=== PATIENT | female | born 1965 ===

== ENCOUNTER → 2016-03-27 | Outpatient (CLI) | payer BC ==
--- NOTE | 2016-03-27 08:16 | MM ---
Reason for exam: clinical finding. Last mammogram was performed 2 years and 6 months ago. History: Patient is postmenopausal. Physical Findings: Nurse did not find any significant physical abnormalities on exam. MG Diagnostic Mammo w CAD RONNY Bilateral CC and MLO view(s) were taken. Prior study comparison: September 16, 2013, bilateral MG screening mammo w CAD. May 29, 2012, bilateral digital screening mammo w/CAD. There are scattered fibroglandular densities. Finding: There are typically benign calcifications. There is no discrete abnormality including area of concern. These results were verbally communicated with the patient and result sheet given to the patient on 03/27/16. ASSESSMENT: Benign, BI-RAD 2 RECOMMENDATION: Routine screening mammogram of both breasts in 1 year. Manage patient on a clinical basis.
== END | disposition home or self-care (01) ==
LOC: RADMAMWWP 07:13
PROVIDERS: ATTEND Obstetrics & Gynecology
DX: N63 Unspecified lump in breast (principal)

== ENCOUNTER 2017-11-29 12:54 | Emergency (ER) | payer BC ==
[2017-11-29] MEDS ORDERED: KETOROLAC 30 MG/ML 1 ML VIAL IVP STA (13:14)
[2017-11-29] MEDS ORDERED: SODIUM CHLORIDE 0.9% 1,000 ML IV ONE (13:14)
--- NOTE | 2017-11-29 13:17 | ED ---
Abdominal Pain HPI - General Chief Complaint: Abdominal Pain Stated Complaint: Abd pain Time Seen by Provider: 11/29/17 13:05 Source: patient Mode of arrival: ambulatory Limitations: no limitations - History of Present Illness Initial Comments: Patient is a 51-year-old female who presents with a chief complaint of right lower quadrant abdominal pain. This is after one week. The patient was seen by her primary care Dr and sent to emergency department for evaluation of appendicitis. Patient states that she has not had fever or diarrhea. She states that she has been nauseated but has not vomited. She states that her appetite is normal. Patient does not have any history of kidney stones. The patient states that she is a history of diabetes. Patient states that pain is aggravated by certain movements. There are no alleviating factors. Timing is constant and worsening over the week. - Related Data Home Medications Medication Instructions Recorded Confirmed No Known Home Medications 11/29/17 11/29/17 Allergies Allergy/AdvReac Type Severity Reaction Status Date / Time No Known Allergies Allergy Verified 11/29/17 12:59 Review of Systems ROS Statement: Those systems with pertinent positive or pertinent negative responses have been documented in the HPI. ROS Other: All systems not noted in ROS Statement are negative. Gastrointestinal: Reports: abdominal pain, nausea Genitourinary: Reports: frequency Past Medical History Past Medical History: Diabetes Mellitus History of Any Multi-Drug Resistant Organisms: None Reported Past Surgical History: Section, Hysterectomy Past Psychological History: No Psychological Hx Reported Smoking Status: Never smoker Past Alcohol Use History: None Reported Past Drug Use History: None Reported General Exam Limitations: no limitations General appearance: alert, in no apparent distress Head exam: Present: atraumatic, normocephalic Eye exam: Present: normal appearance ENT exam: Present: normal exam, mucous membranes moist Neck exam: Present: normal inspection Respiratory exam: Present: normal lung sounds bilaterally. Absent: respiratory distress, wheezes Cardiovascular Exam: Present: regular rate, normal rhythm GI/Abdominal exam: Present: soft, tenderness (Patient is tenderness palpation in the right lower quadrant). Absent: distended Rectal exam: Present: deferred Extremities exam: Present: normal inspection Back exam: Present: normal inspection, CVA tenderness (R). Absent: CVA tenderness (L) Neurological exam: Present: alert, oriented X3 Psychiatric exam: Present: normal affect, normal mood Skin exam: Present: warm, dry, intact Course Vital Signs 11/29/17 12:59 Temperature 97.9 F Pulse Rate 69 Respiratory 18 Rate Blood Pressure 177/122 O2 Sat by Pulse 99 Oximetry Medical Decision Making - Medical Decision Making Patient is a 51-year-old who presents with chief complaint of right lower quadrant abdominal pain. On initial evaluation, vitals are stable, patient is in no acute distress. Considering kidney stone versus appendicitis. Patient to be evaluated with basic labs, urinalysis, and computed tomography scan of the abdomen and pelvis. 5:07 PM E evaluation of this patient is unremarkable, urinalysis does not show evidence of hematuria or infection. Computed tomography scan with contrast shows a normal appendix, and it normal evaluation of the kidneys. Of note, there were cysts on the right adnexa. Follow-up ultrasound shows similar complex adnexal cysts the biggest of which measuring 5 cm in diameter at its largest dimension. Patient states she has not had a period 12 years. I discussed the results with the patient instructed that she follow up with Dr. Cherry as soon as possible. Patient was instructed to return to the emergency department for reevaluation if pain worsens. She was instructed to take Motrin and Tylenol for pain control. Follow up with primary care in 1-2 days. - Lab Data Result diagrams: 11/29/17 13:24 11/29/17 13:24 Lab Results 11/29/17 11/29/17 11/29/17 Range/Units 13:24 13:24 13:24 WBC 5.9 (3.8-10.6) k/uL RBC 5.41 H (3.80-5.40) m/uL Hgb 14.6 (11.4-16.0) gm/dL Hct 46.0 (34.0-46.0) % MCV 84.9 (80.0-100.0) fL MCH 26.9 (25.0-35.0) pg MCHC 31.7 (31.0-37.0) g/dL RDW 13.6 (11.5-15.5) % Plt Count 224 (150-450) k/uL Neutrophils % 39 % Lymphocytes % 50 % Monocytes % 5 % Eosinophils % 3 % Basophils % 1 % Neutrophils # 2.3 (1.3-7.7) k/uL Lymphocytes # 2.9 (1.0-4.8) k/uL Monocytes # 0.3 (0-1.0) k/uL Eosinophils # 0.2 (0-0.7) k/uL Basophils # 0.1 (0-0.2) k/uL Sodium 141 (137-145) mmol/L Potassium 4.5 (3.5-5.1) mmol/L Chloride 108 H (98-107) mmol/L Carbon Dioxide 24 (22-30) mmol/L Anion Gap 9 mmol/L BUN 16 (7-17) mg/dL Creatinine 0.57 (0.52-1.04) mg/dL Est GFR (CKD-EPI)AfAm >90 (>60 ml/min/1.73 sqM) Est GFR (CKD-EPI)NonAf >90 (>60 ml/min/1.73 sqM) Glucose 134 H (74-99) mg/dL Calcium 9.8 (8.4-10.2) mg/dL Total Bilirubin 0.4 (0.2-1.3) mg/dL AST 19 (14-36) U/L ALT 29 (9-52) U/L Alkaline Phosphatase 80 (38-126) U/L Total Protein 7.4 (6.3-8.2) g/dL Albumin 4.2 (3.5-5.0) g/dL Urine Color Yellow Urine Appearance Cloudy H (Clear) Urine pH 7.0 (5.0-8.0) Ur Specific [place] 1.016 (1.001-1.035) Urine Protein Negative (Negative) Urine Glucose (UA) Negative (Negative) Urine Ketones Negative (Negative) Urine Blood Negative (Negative) Urine Nitrite Negative (Negative) Urine Bilirubin Negative (Negative) Urine Urobilinogen <2.0 (<2.0) mg/dL Ur Leukocyte Esterase Negative (Negative) Urine RBC 1 (0-5) /hpf Urine WBC 1 (0-5) /hpf Ur Squamous Epith Cells 4 (0-4) /hpf Urine Bacteria Rare H (None) /hpf Disposition Clinical Impression: Ovarian cyst Disposition: HOME SELF-CARE Condition: Good Is patient prescribed a controlled substance at d/c from ED?: No Referrals: Leslie Chaney MD [Primary Care Provider] - 1-2 days
[2017-11-29 13:44] LABS: Basophils # (A) 0.1 k/uL (0-0.2); Basophils % (A) 1 %; Eosinophils # (A) 0.2 k/uL (0-0.7); Eosinophils % (A) 3 %; HGB 14.6 gm/dL (11.4-16.0); Lymphocytes # (A) 2.9 k/uL (1.0-4.8); Lymphocytes % (A) 50 %; MCH 26.9 pg (25.0-35.0); MCHC 31.7 g/dL (31.0-37.0); MCV 84.9 fL (80.0-100.0); Mean Platelet Volume 8.7; Monocytes # (A) 0.3 k/uL (0-1.0); Monocytes % (A) 5 %; Neutrophils # (A) 2.3 k/uL (1.3-7.7); Neutrophils % (A) 39 %; Platelet Count 224 k/uL (150-450); RBC 5.41 m/uL (3.80-5.40); RDW 13.6 % (11.5-15.5); WBC 5.9 k/uL (3.8-10.6)
[2017-11-29 13:46] LABS: Appearance,Urine Cloudy (Clear); Bacteria,Urine Rare /hpf; Bilirubin,Urine Negative (Negative); Blood,Urine Negative (Negative); Color,Urine Yellow; Glucose,Urine (UA) Negative (Negative); Ketones,Urine Negative (Negative); Leukocyte Esterase,Urine Negative (Negative); Nitrite,Urine Negative (Negative); Protein,Urine Negative (Negative); RBC,Urine 1 /hpf (0-5); Specific Gravity,Urine 1.016 (1.001-1.035); Squamous Epithelial Cell,Urine 4 /hpf (0-4); Urobilinogen,Urine <2.0 mg/dL (<2.0)
[2017-11-29 13:53] LABS: ALT 29 U/L (9-52); AST 19 U/L (14-36); Albumin 4.2 g/dL (3.5-5.0); Alkaline Phosphatase 80 U/L (38-126); Anion Gap 9 mmol/L; Blood Urea Nitrogen 16 mg/dL (7-17); Calcium 9.8 mg/dL (8.4-10.2); Carbon Dioxide 24 mmol/L (22-30); Chloride 108 mmol/L (98-107); Glucose 134 mg/dL (74-99); Potassium 4.5 mmol/L (3.5-5.1); Sodium 141 mmol/L (137-145); Total Bilirubin 0.4 mg/dL (0.2-1.3); Total Protein 7.4 g/dL (6.3-8.2)
--- NOTE | 2017-11-29 15:03 | CT ---
EXAMINATION TYPE: CT abdomen pelvis w con DATE OF EXAM: 11/29/2017 COMPARISON: None INDICATION: RLQ pain DLP: 1161.7 mGycm, Automated exposure control for dose reduction was used. CONTRAST: 100 mL of Isovue 300. Study performed without Oral Contrast TECHNIQUE: Axial images were obtained from above the diaphragm to the pubic rami in the axial plane a t 5 mm thick sections. Reconstructed images are reviewed on the computer in the coronal plane. FINDINGS: Limited CT sections are obtained the lung bases. The lung bases are clear. CT ABDOMEN: Liver: Normal Spleen: Normal Pancreas: Normal Adrenal glands: The adrenal glands are normal. Gallbladder: Normal Kidneys: No masses are evident. No hydronephrosis is present. No cysts are present. Delayed images were obtained through the kidneys, which remain unremarkable. Aorta: Normal Inferior vena cava: Normal. CT PELVIS: Loops of bowel within the abdomen and pelvis are normal. Studies performed without oral contrast limiting the evaluation. Appendix: Normal as visualized. Urinary bladder: Partially decompressed with some limited evaluation. Genitourinary structures: There are several cystlike structures on the right ovary. The largest measu res 3.8 cm with additional 2.8 and 1.5 cm cysts. Additional evaluation with pelvic ultrasound is sanam mmended. Left adnexal region appears normal uterus is not identified. Osseous structures: No suspicious lytic or sclerotic lesions. IMPRESSIONS: 1. Several cystlike areas within the right adnexal region. These can be further evaluated with pelvi c ultrasound.
--- NOTE | 2017-11-29 16:46 | US ---
EXAMINATION TYPE: US transvaginal DATE OF EXAM: 11/29/2017 COMPARISON: CT CLINICAL HISTORY: Pain. RLQ pain TECHNIQUE: Transvaginal (TV). Date of LMP: hysterectomy 13 years ago EXAM MEASUREMENTS: Uterus: Surgically absent cm Endometrial Stripe: Surgically absent cm Right Ovary: 8.0 x 5.5 x 6.1 cm Left Ovary: 1.3 x 1.1 x 1.3 cm Large complex cystic lesion right adnexa is believed to be ovarian as there is tissue rind seen with blood flow. 1. Uterus: Surgically absent 2. Endometrium: Surgically absent 3. Right Ovary: multiple large cysts, largest measures 5.5 x 3.4 x 3.6 cm. 4. Left Ovary: appears normal , difficult to see well. Spectral, color and waveform doppler imaging shows good arterial and venous flow within the ovaries ; there is no evidence for ovarian torsion. 5. Bilateral Adnexa: wnl 6. Posterior cul-de-sac: no free fluid IMPRESSION: 1. Large cysts on the right ovary correlating with the CT examination. Follow-up is recommended. Neop lasm is not excluded. Simple and complex (Septated) cysts are within the differential.
[2017-11-29 17:22] VITALS: BP 168/112; PULSE 75; RESP 16; TEMP 98.4
== END 2017-11-29 17:22 | disposition home or self-care (01) ==
LOC: EC 12:54
DX: N83.201 Unspecified ovarian cyst, right side (principal); Z90.710 Acquired absence of both cervix and uterus
CPT/HCPCS: 36415; 80053; 85025; 81001; 93975; 76830; 74177; 99284; 96374; 96361 ×2; J1885; Q9967

== ENCOUNTER → 2017-12-25 | Outpatient (CLI) | payer BC ==
--- NOTE | 2017-12-26 13:13 | MM ---
Reason for exam: screening (asymptomatic). Last mammogram was performed 1 year and 9 months ago. History: Patient is postmenopausal. Physical Findings: A clinical breast exam by your physician is recommended on an annual basis and results should be correlated with mammographic findings. MG 3D Screening Mammo W/Cad Bilateral CC and MLO view(s) were taken. Prior study comparison: March 27, 2016, bilateral MG diagnostic mammo w CAD RONNY. September 16, 2013, bilateral MG screening mammo w CAD. There are scattered fibroglandular densities. Stable benign calcifications. There is no discrete abnormality. No significant changes when compared with prior studies. ASSESSMENT: Benign, BI-RAD 2 RECOMMENDATION: Routine screening mammogram of both breasts in 1 year.
== END | disposition home or self-care (01) ==
LOC: RADMAMWWP 11:21
PROVIDERS: ATTEND Obstetrics & Gynecology
DX: Z12.31 Encounter for screening mammogram for malignant neoplasm of breast (principal)
CPT/HCPCS: 77063; 77067

== ENCOUNTER → 2018-09-11 | Outpatient (CLI) | payer BC ==
--- NOTE | 2018-09-13 13:28 | MR ---
EXAMINATION TYPE: MR lumbar spine wo con DATE OF EXAM: 09/11/2018 COMPARISON: CT abdomen and pelvis November 29, 2017 HISTORY: M54.16 per order. Back pain into both legs over 6 months per patient. TECHNIQUE: Multiplanar, multisequence imaging of the lumbar spine is performed without IV contrast. FINDINGS: Sagittal images of the lumbar spine show vertebral body heights and alignment to appear sat isfactory. The intervertebral discs demonstrate multilevel disc desiccation with disc space heights a re fairly well maintained. The conus medullaris is normal in position and signal ending inferior L1 level. The bone marrow signal intensity is within normal limits. Axial images show the T12-L1, L1-L2, and L2-L3 levels all to be within normal limits. Axial images at L3-L4 level shows mild broad-based disc bulge without spinal canal is preserved. Ther e is mild facet degenerative change and ligamentum hypertrophy. Axial images at L4-L5 level show moderate facet degenerative changes bilaterally. There is mild broad -based posterior disc protrusion minimally effacing the anterior thecal sac. There is mild right grea ter than left bilateral anterior inferior neural foraminal narrowing. Axial images at the L5-S1 level show [id number] facet degenerative changes bilaterally. Spinal canal is preserved. Bilateral neural foramina are patent. Paraspinal muscle bulk is maintained. IMPRESSION: Mild multilevel degenerative changes mid to lower lumbar spine as detailed above.
== END | disposition home or self-care (01) ==
LOC: RADMRIMAIN 18:33
DX: M48.061 Spinal stenosis, lumbar region without neurogenic claudication (principal); M51.26 Other intervertebral disc displacement, lumbar region; M51.86 Other intervertebral disc disorders, lumbar region; M47.816 Spondylosis without myelopathy or radiculopathy, lumbar region
CPT/HCPCS: 72148

== ENCOUNTER → 2018-12-02 | Outpatient (CLI) | payer BC ==
--- NOTE | 2018-12-02 08:06 | MM ---
Reason for exam: clinical finding. Last mammogram was performed 11 months ago. History: Patient is postmenopausal. Physical Findings: Nurse did not find any significant physical abnormalities on exam. MG 3D Diag Mammo W/Cad RONNY Bilateral CC and MLO view(s) were taken. Prior study comparison: December 25, 2017, bilateral MG 3d screening mammo w/cad. March 27, 2016, bilateral MG diagnostic mammo w CAD RONNY. There are scattered fibroglandular densities. Stable benign calcifications. These results were verbally communicated with the patient and result sheet given to the patient on 12/02/18. ASSESSMENT: Benign, BI-RAD 2 RECOMMENDATION: Routine screening mammogram of both breasts in 1 year. Manage on a clinical basis with regard to far right axillary skin complaint.
== END | disposition home or self-care (01) ==
LOC: RADMAMWWP 07:06
PROVIDERS: ATTEND Obstetrics & Gynecology
DX: N63.10 Unspecified lump in the right breast, unspecified quadrant (principal); N63.20 Unspecified lump in the left breast, unspecified quadrant
CPT/HCPCS: 77062; 77066

== ENCOUNTER → 2019-02-19 | Outpatient (CLI) | payer BC ==
--- NOTE | 2019-02-20 12:11 | US ---
EXAMINATION TYPE: US pelvic complete DATE OF EXAM: 02/19/2019 COMPARISON: US dated 11/29/2017 & CT CLINICAL HISTORY: R19.09 Pelvic mass. F/U right pelvic mass, pt states surgery to drain mass right ad nexa in August, pt denies pain TECHNIQUE: Transabdominal (TA). Transabdominal sonographic images of the pelvis were acquired. Date of LMP: 13 yrs ago, uterus surgically removed EXAM MEASUREMENTS: Left Ovary: 1.8 x 1.4 x 1.7 cm 1. Uterus: Surgically absent 2. Endometrium: Surgically absent 3. Right Ovary: No normal ovarian tissue visualized 4. Left Ovary: wnl 5. Bilateral Adnexa: Complex, cystic mass right adnexa= 6.2 x 5.6 x 4.7 cm, similar in appearance wh en compared to previous with some internal septations, wall shows some questionable thickening 6. Posterior cul-de-sac: wnl No significant color flow IMPRESSION: Multilocular cyst may be decreased slightly in size in the interval
== END | disposition home or self-care (01) ==
LOC: RADUSWWP 16:15
PROVIDERS: ATTEND Obstetrics & Gynecology Gynecologic Oncology
DX: N83.8 Other noninflammatory disorders of ovary, fallopian tube and broad ligament (principal)
CPT/HCPCS: 76856

== ENCOUNTER → 2019-05-14 | Outpatient (CLI) | payer BC ==
--- NOTE | 2019-05-15 07:32 | US ---
EXAMINATION TYPE: US pelvis complete transvag DATE OF EXAM: 05/14/2019 COMPARISON: Pelvic ultrasound dated 02/28/2019 and 11/29/2017 CLINICAL HISTORY: R19.09 Pelvic mass. Right adnexal mass follow up, uterus removed TECHNIQUE: Transvaginal (TV) and Transabdominal (TA) . Transabdominal sonographic images of the pel vis were acquired. Transvaginal sonographic images were medically necessary to better assess the fol lowing anatomy: Ovaries Date of LMP: Partial hysterectomy EXAM MEASUREMENTS: 1. Uterus: Surgically absent 2. Endometrium: Surgically absent 3. Right Ovary: See adnexa notes 4. Left Ovary: Obscured by overlying bowel gas 5. Bilateral Adnexa: In right adnexa, large vascular complex cystic lesion visualized = 6.9 x 5.7 x 6.4 cm. Unable to determine origin due to no normal ovarian tissue visualized and location. This was previously measured at 6.2 x 5.6 x 4.7 cm on the exam of 02/19/2019 and 5.5 x 3.4 x 3.6 cm on the ex am of 11/29/2017. 6. Posterior cul-de-sac: no free fluid IMPRESSION: There is continued interval growth of the right adnexal complex multiloculated cystic mas s. This is abnormal and concerning for neoplasm in a postmenopausal female measuring up to 6.9 cm on the current exam. Gynecologic/oncologic consultation is recommended.
== END | disposition home or self-care (01) ==
LOC: RADUSWWP 16:20
PROVIDERS: ATTEND Obstetrics & Gynecology Gynecologic Oncology
DX: R19.09 Other intra-abdominal and pelvic swelling, mass and lump (principal)
CPT/HCPCS: 76830; 76856; 93976

== ENCOUNTER → 2019-12-20 | Outpatient (CLI) | payer BC ==
--- NOTE | 2019-12-20 15:53 | US ---
EXAMINATION TYPE: US transvaginal DATE OF EXAM: 12/20/2019 COMPARISON: NONE CLINICAL HISTORY: 53-year-old female R19.09 PELVIC MASS. TECHNIQUE: Transvaginal (TV). Date of LMP: 2005/Hysterectomy FINDINGS: 1. Uterus: surgically absent 2. Endometrium: Surgically absent 3. Right Ovary: probable right ovarian mass measures 5.9 x 3.4 x 3.7cm. Unable to determine origin due to no normal ovarian tissue visualized in this location. Previous measurements: 05/14/2019: 6.9 x 5.7 x 6.4 cm. 02/19/2019: 6.2 x 5.6 x 4.7 cm 11/29/2017: 5.5 x 3.4 x 3.6 cm 4. Left Ovary: Obscured by overlying bowel gas 5. Bilateral Adnexa: Right adnexa see above 6. Posterior cul-de-sac: wnl IMPRESSION: 1. Redemonstrated multiloculated complex cystic mass located within the right adnexa containing multi ple septations and currently measured at 5.9 x 3.7 cm versus 6.9 x 6.4 cm, previously. Measurements f rom the last 3 exams are noted above. Ongoing follow-up as clinically indicated. A cystic epithelial ovarian neoplasm remains in the differential. 2. Left ovary cannot be visualized. Status post hysterectomy.
== END | disposition home or self-care (01) ==
LOC: RADUSWWP 12:55
PROVIDERS: ATTEND Obstetrics & Gynecology Gynecologic Oncology
DX: R19.09 Other intra-abdominal and pelvic swelling, mass and lump (principal); Z90.710 Acquired absence of both cervix and uterus
CPT/HCPCS: 76830

== ENCOUNTER → 2020-03-02 | Outpatient (CLI) | payer BC ==
[2020-03-02 17:06] LABS: Albumin 4.5 g/dL (3.80-4.90); Albumin/Globulin Ratio 1.88 (1.60-3.17); Anion Gap 10.4 mmol/L (4.00-12.00); BUN/Creat Ratio 24.29 Ratio (12.00-20.00); Calcium 9.4 mg/dL (8.7-10.3); Carbon Dioxide 23.6 mmol/L (21.6-31.8); Chol/HDL Ratio 4.79; Globulin 2.4 g/dL (1.6-3.3); Non-African American GFR(CKD) 97.5 (60.0-200.0); Potassium 3.9 mmol/L (3.5-5.5); Total Bilirubin 0.5 mg/dL (0.3-1.2); Total Protein 6.9 g/dL (6.2-8.2)
== END | disposition home or self-care (01) ==
LOC: LABWHC1 09:08
PROVIDERS: ATTEND Internal Medicine
DX: E11.65 Type 2 diabetes mellitus with hyperglycemia (principal)
CPT/HCPCS: 36415; 80053; 80061; 82043; 82570; 83036

== ENCOUNTER → 2020-03-27 | Outpatient (CLI) | payer BC ==
--- NOTE | 2020-03-28 12:33 | MM ---
Reason for exam: screening (asymptomatic). Last mammogram was performed 1 year and 4 months ago. History: Patient is postmenopausal. Took hormonal contraceptives for 6 months. Physical Findings: A clinical breast exam by your physician is recommended on an annual basis and results should be correlated with mammographic findings. MG 3D Screening Mammo W/Cad Bilateral CC and MLO view(s) were taken. Prior study comparison: December 02, 2018, bilateral MG 3d diag mammo w/cad RONNY. December 25, 2017, bilateral MG 3d screening mammo w/cad. There are scattered fibroglandular densities. Stable regional calcifications central right breast. Small grouped posterior central calcifications minimally increased from 2019, but new from 2018. 6 month follow up recommended. ASSESSMENT: Probably benign, BI-RAD 3 RECOMMENDATION: Follow-up diagnostic mammogram of the right breast in 6 months. (3D)
== END | disposition home or self-care (01) ==
LOC: RADMAMWWP 16:15
PROVIDERS: ATTEND Obstetrics & Gynecology
DX: Z12.31 Encounter for screening mammogram for malignant neoplasm of breast (principal)
CPT/HCPCS: 77063; 77067

== ENCOUNTER → 2020-09-28 | Outpatient (CLI) | payer BC ==
--- NOTE | 2020-09-29 14:16 | MM ---
Reason for exam: follow-up at short interval from prior study. Last mammogram was performed 6 months ago. History: Patient is postmenopausal. Took hormonal contraceptives for 6 months. Physical Findings: Nurse did not find any significant physical abnormalities on exam. MG 3D Diag Mammo W/Cad RT CC and MLO view(s) were taken of the right breast. Prior study comparison: March 27, 2020, bilateral MG 3d screening mammo w/cad. December 02, 2018, bilateral MG 3d diag mammo w/cad RONNY. There are scattered fibroglandular densities. Stable regional oil cysts. Small grouped calcifications posterior central 6 o'clock position. On magnification views, there are approximately 3 coarse calcifications, stable for 6 months. Continued short interval follow up recommended. These results were verbally communicated with the patient and result sheet given to the patient on 09/28/20. ASSESSMENT: Probably benign, BI-RAD 3 RECOMMENDATION: Follow-up diagnostic mammogram of both breasts in 6 months.
== END | disposition home or self-care (01) ==
LOC: RADMAMWWP 14:18
PROVIDERS: ATTEND Obstetrics & Gynecology
DX: R92.1 Mammographic calcification found on diagnostic imaging of breast (principal); N64.89 Other specified disorders of breast
CPT/HCPCS: 77061; 77065

== ENCOUNTER → 2022-06-14 | Outpatient (CLI) | payer BC ==
--- NOTE | 2022-06-18 09:48 | MM ---
Reason for Exam: Screening (asymptomatic). Last mammogram was performed 2 year(s) and 3 month(s) ago. Patient History: Menarche at age 10. First Full-Term at age 24. Hysterectomy at age 39. Postmenopausal. Patient has history of breast feeding. Hormonal Contraceptives for 6 months. Risk Values: Jen 5 year model risk: 1.6%. NCI Lifetime model risk: 9.5%. Prior Study Comparison: 12/02/2018 Bilateral Diagnostic Mammogram, [facility]. 03/27/2020 Bilateral Screening Mammogram, [facility]. 09/28/2020 Right Diagnostic Mammogram, [facility]. Tissue Density: There are scattered fibroglandular densities. Findings: Analyzed By CAD. Pattern appears stable. There are multiple benign-appearing round calcifications right breast. Scattered benign-appearing punctate calcifications are present bilaterally. There are 4 punctate calcifications in the posterior right breast which appear stable from most recent comparison. Continued short-term follow-up including magnification views is recommended. No suspicious groups of microcalcifications, spiculated or lobular masses, architectural distortion or other secondary signs of malignancy are mammographically apparent. Overall Assessment: Probably benign, BI-RAD 3 Management: Diagnostic Mammogram of the right breast in 6 months. A negative mammogram report should not preclude additional follow up of suspicious palpable abnormalities. Patient should continue monthly self breast exam. A clinical breast exam by your physician is recommended on an annual basis and results should be correlated with mammographic findings. Electronically signed and approved by: Frank Tyson D.O. Radiologis
== END | disposition home or self-care (01) ==
LOC: RADMAMWWP 15:39
PROVIDERS: ATTEND Family Medicine
DX: Z12.31 Encounter for screening mammogram for malignant neoplasm of breast (principal); Z80.3 Family history of malignant neoplasm of breast; Z78.0 Asymptomatic menopausal state
CPT/HCPCS: 77063; 77067

== ENCOUNTER 2022-07-09 11:54 | Observation (INO) | payer BC ==
[2022-07-09] MEDS ORDERED: ASPIRIN 81 MG PO STA ×2 (12:27→14:29)
[2022-07-09] MEDS ORDERED: NITROGLYCERIN OINT 1 INCH/GM PACKET TOPICAL STA (12:27)
[2022-07-09] MEDS ORDERED: IPRATROPIUM-ALBUTEROL 3 ML NEB INHALATION STA (12:29)
--- NOTE | 2022-07-09 12:32 | ED ---
General Adult HPI - General Chief complaint: Chest Pain Stated complaint: chest pain Time Seen by Provider: 07/09/22 12:00 Source: patient, RN notes reviewed, old records reviewed Mode of arrival: ambulatory Limitations: no limitations - History of Present Illness Initial comments: This a 56-year-old female who comes in complaining that she's had a cough for at least a week maybe 2 weeks. Patient states she's been on the Zithromax and a steroid and it did not help. Patient states her primary medical care doctor told her she had mono. Patient was instructed to come the emergency department to rule out any coronary artery disease because she is expressing chest pain. She states the chest pain is an aching. She stated that Dr. Chaney told her that her EKG had changes and so she needed to see a location director. Patient denies shortness of breath but she is short of breath when she coughs. Patient denies any sputum production. Patient denies any abdominal pain. Patient states she had a 99.6 temperature in the doctor's office. Patient denies any back pain. Patient denies headache patient denies lightheadedness or dizziness. Patient states she's diabetic has high blood pressure and high cholesterol. - Related Data Home Medications Medication Instructions Recorded Confirmed Insulin Degludec [Tresiba 10 units SQ DAILY 12/25/17 12/25/17 Flextouch U-100] Vit B Complx C/Folic Acid/Zinc 1 tab PO DAILY 12/25/17 12/25/17 [Renaplex Tablet] Vit D3/Folic Acid/B2/B6/B12 1 tab PO DAILY 12/25/17 12/25/17 [Folgard Tablet] Allergies Allergy/AdvReac Type Severity Reaction Status Date / Time No Known Allergies Allergy Verified 07/09/22 11:59 Review of Systems ROS Statement: Those systems with pertinent positive or pertinent negative responses have been documented in the HPI. ROS Other: All systems not noted in ROS Statement are negative. Past Medical History Past Medical History: Diabetes Mellitus, Hyperlipidemia History of Any Multi-Drug Resistant Organisms: None Reported Past Surgical History: Section, Hysterectomy Past Psychological History: Anxiety Smoking Status: Never smoker Past Alcohol Use History: None Reported Past Drug Use History: None Reported General Exam - General Exam Comments Initial Comments: GENERAL: Patient is well-developed and well-nourished. Patient is nontoxic and well- hydrated and is in mild distress. ENT: Neck is soft and supple. No significant lymphadenopathy is noted. Oropharynx is clear. Moist mucous membranes. Neck has full range of motion without eliciting any pain. EYES: The sclera were anicteric and conjunctiva were pink and moist. Extraocular movements were intact and pupils were equal round and reactive to light. Eyelids were unremarkable. PULMONARY: Unlabored respirations. Good breath sounds bilaterally. No audible rales rhonchi or wheezing was noted. CARDIOVASCULAR: There is a regular rate and rhythm without any murmurs gallops or rubs. ABDOMEN: Soft and nontender with normal bowel sounds. No palpable organomegaly was noted. There is no palpable pulsatile mass. SKIN: Skin is clear with no lesions or rashes and otherwise unremarkable. NEUROLOGIC: Patient is alert and oriented x3. Cranial nerves II through XII are grossly intact. Motor and sensory are also intact. Normal speech, volume and content. Symmetrical smile. MUSCULOSKELETAL: Normal extremities with adequate strength and full range of motion. No lower extremity swelling or edema. No calf tenderness. LYMPHATICS: No significant lymphadenopathy is noted PSYCHIATRIC: Normal psychiatric evaluation. Limitations: no limitations Course Vital Signs 07/09/22 07/09/22 07/09/22 11:56 12:15 12:36 Temperature 104 F H 98.6 F Pulse Rate 101 H 93 Respiratory 18 20 19 Rate Blood Pressure 175/108 187/117 O2 Sat by Pulse 97 95 Oximetry 07/09/22 07/09/22 07/09/22 13:15 13:24 13:36 Temperature 99.0 F Pulse Rate 73 89 89 Respiratory 18 Rate Blood Pressure 164/106 O2 Sat by Pulse 93 L Oximetry Medical Decision Making - Medical Decision Making EKG is interpreted by myself shows a sinus rhythm at 94 bpm LA interval 171 QRS is 85 Q-T intervals 348 QTC is 400. Patient's EKG does show some ST segment depression in the inferior leads. No ST segment elevation is noted patient does have Q waves in V1 and V2 Was pt. sent in by a medical professional or institution (MARIE Parra, DIRECTOR TRADE, urgent care, hospital, or fdc...) When possible be specific @ -Her primary medical care doctor sent her to the emergency department Did you speak to anyone other than the patient for history (EMS, parent, family, police, friend...)? What history was obtained from this source @ -No Did you review nursing and triage notes (agree or disagree)? Why? @ -I reviewed and agree with nursing and triage notes Were old charts reviewed (outside hosp., previous admission, EMS record, old EKG, old radiological studies, urgent care reports/EKG's, fdc records)? Report findings @ -I reviewed prior charts and lab work. Differential Diagnosis (chest pain, altered mental status, abdominal pain women, abdominal pain men, vaginal bleeding, weakness, fever, dyspnea, syncope, headache, dizziness, GI bleed, back pain, seizure, CVA, palpatations, mental health, musculoskeletal)? @ -Differential Chest Pain: Stable Angina, Unstable Angina, STEMI, NSTEMI Aortic Dissection, Pneumothorax, Musculoskeletal, Esophageal Spasm GERD, Cholecystitis, Pancreatitis, Zoster, this is not meant to be an all-inclusive list. EKG interpreted by me (3pts min.). @ -As above X-rays interpreted by me (1pt min.). @ -Chest x-ray was interpreted by myself is in no acute abnormality. CT interpreted by me (1pt min.). @ -None done U/S interpreted by me (1pt. min.). @ -None done What testing was considered but not performed or refused? (CT, X-rays, U/S, labs)? Why? @ -None What meds were considered but not given or refused? Why? @ -None Did you discuss the management of the patient with other professionals (professionals i.e. , PA, DIRECTOR TRADE, lab, RT, psych nurse, social welfare administrator, social worker school, teacher, aadc plans staff officer, renal case manager)? Give summary @ -I spoke with Dr. Rosa he agreed to admit the patient admitted the patient I wrote admitting orders Was smoking cessation discussed for >3mins.? @ -No Was critical care preformed (if so, how long)? @ -No Were there social determinants of health that impacted care today? How? (Homelessness, low income, unemployed, alcoholism, drug addiction, transportation, low edu. Level, literacy, decrease access to med. care, custodial, rehab)? @ -No Was there de-escalation of care discussed even if they declined (Discuss DNR or withdrawal of care, Hospice)? DNR status @ -No What co-morbidities impacted this encounter? (DM, HTN, Smoking, COPD, CAD, Cancer, CVA, ARF, Chemo, Hep., AIDS, mental health diagnosis, sleep apnea, morbid obesity)? @ -None Was patient admitted / discharged? Hospital course, mention meds given and route, prescriptions, significant lab abnormalities, going to OR and other pe rtinent info. @ -Patient continued to have some discomfort in her chest while in the emergency department. Patient's EKG did show ST segment depression in the inferior leads and Dr. Chaney did wanted to be evaluated for her heart because of these depressions so I spoke with Dr. Rosa he agreed to admit the patient admitted the patient wrote admitting orders I gave the patient aspirin and Nitropaste. I consult to cardiology Undiagnosed new problem with uncertain prognosis? @ -No Drug Therapy requiring intensive monitoring for toxicity (Heparin, Nitro, Insulin, Cardizem)? @ -No Were any procedures done? @ -No Diagnosis/symptom? @ -Chest pain Acute, or Chronic, or Acute on Chronic? @ -Acute Uncomplicated (without systemic symptoms) or Complicated (systemic symptoms)? @ -Complicated Side effects of treatment? @ -No Exacerbation, Progression, or Severe Exacerbation? @ -No Poses a threat to life or bodily function? How? (Chest pain, [place], VA, pneumonia, PE, COPD, DKA, ARF, appy, cholecystitis, CVA, Diverticulitis, Homicidal, Suicidal, threat to staff... and all critical care pts) @ -No - Lab Data Result diagrams: 07/09/22 12:38 07/09/22 12:38 Lab Results 07/09/22 07/09/22 07/09/22 Range/Units 12:38 12:38 12:38 WBC 6.1 (3.8-10.6) k/uL RBC 5.65 H (3.80-5.40) m/uL Hgb 14.9 (11.4-16.0) gm/dL Hct 46.1 H (34.0-46.0) % MCV 81.6 (80.0-100.0) fL MCH 26.4 (25.0-35.0) pg MCHC 32.3 (31.0-37.0) g/dL RDW 14.3 (11.5-15.5) % Plt Count 173 (150-450) k/uL MPV 9.7 Neutrophils % 65 % Lymphocytes % 26 % Monocytes % 4 % Eosinophils % 2 % Basophils % 1 % Neutrophils # 4.0 (1.3-7.7) k/uL Lymphocytes # 1.6 (1.0-4.8) k/uL Monocytes # 0.3 (0-1.0) k/uL Eosinophils # 0.1 (0-0.7) k/uL Basophils # 0.0 (0-0.2) k/uL PT 10.3 (9.0-12.0) sec INR 1.0 (<1.2) APTT 24.0 (22.0-30.0) sec D-Dimer 0.37 (<0.60) mg/L FEU Sodium 138 (137-145) mmol/L Potassium 3.8 (3.5-5.1) mmol/L Chloride 102 (98-107) mmol/L Carbon Dioxide 25 (22-30) mmol/L Anion Gap 11 mmol/L BUN 9 (7-17) mg/dL Creatinine 0.59 (0.52-1.04) mg/dL Est GFR (CKD-EPI)AfAm >90 (>60 ml/min/1.73 sqM) Est GFR (CKD-EPI)NonAf >90 (>60 ml/min/1.73 sqM) Glucose 126 H (74-99) mg/dL Calcium 9.1 (8.4-10.2) mg/dL Magnesium 2.0 (1.6-2.3) mg/dL Total Bilirubin 0.5 (0.2-1.3) mg/dL AST 19 (14-36) U/L ALT 21 (4-34) U/L Alkaline Phosphatase 95 (38-126) U/L Troponin I (0.000-0.034) ng/mL Total Protein 7.4 (6.3-8.2) g/dL Albumin 4.2 (3.5-5.0) g/dL Influenza Type A (PCR) (Not Detectd) Influenza Type B (PCR) (Not Detectd) RSV (PCR) (Not Detectd) SARS-CoV-2 (PCR) (Not Detectd) 07/09/22 07/09/22 Range/Units 12:38 12:38 WBC (3.8-10.6) k/uL RBC (3.80-5.40) m/uL Hgb (11.4-16.0) gm/dL Hct (34.0-46.0) % MCV (80.0-100.0) fL MCH (25.0-35.0) pg MCHC (31.0-37.0) g/dL RDW (11.5-15.5) % Plt Count (150-450) k/uL MPV Neutrophils % % Lymphocytes % % Monocytes % % Eosinophils % % Basophils % % Neutrophils # (1.3-7.7) k/uL Lymphocytes # (1.0-4.8) k/uL Monocytes # (0-1.0) k/uL Eosinophils # (0-0.7) k/uL Basophils # (0-0.2) k/uL PT (9.0-12.0) sec INR (<1.2) APTT (22.0-30.0) sec D-Dimer (<0.60) mg/L FEU Sodium (137-145) mmol/L Potassium (3.5-5.1) mmol/L Chloride (98-107) mmol/L Carbon Dioxide (22-30) mmol/L Anion Gap mmol/L BUN (7-17) mg/dL Creatinine (0.52-1.04) mg/dL Est GFR (CKD-EPI)AfAm (>60 ml/min/1.73 sqM) Est GFR (CKD-EPI)NonAf (>60 ml/min/1.73 sqM) Glucose (74-99) mg/dL Calcium (8.4-10.2) mg/dL Magnesium (1.6-2.3) mg/dL Total Bilirubin (0.2-1.3) mg/dL AST (14-36) U/L ALT (4-34) U/L Alkaline Phosphatase (38-126) U/L Troponin I <0.012 (0.000-0.034) ng/mL Total Protein (6.3-8.2) g/dL Albumin (3.5-5.0) g/dL Influenza Type A (PCR) Not Detected (Not Detectd) Influenza Type B (PCR) Not Detected (Not Detectd) RSV (PCR) Not Detected (Not Detectd) SARS-CoV-2 (PCR) Not Detected (Not Detectd) Disposition Clinical Impression: Chest pain Disposition: ADMITTED IP TO THIS HOSP Referrals: Leslie Chaney MD [Primary Care Provider] - 1-2 days Time of Disposition: 14:29
[2022-07-09 12:48] LABS: Basophils % (A) 1 %; Eosinophils # (A) 0.1 k/uL (0-0.7); Eosinophils % (A) 2 %; HCT 46.1 % (34.0-46.0); HGB 14.9 gm/dL (11.4-16.0); Lymphocytes # (A) 1.6 k/uL (1.0-4.8); Lymphocytes % (A) 26 %; MCH 26.4 pg (25.0-35.0); MCHC 32.3 g/dL (31.0-37.0); MCV 81.6 fL (80.0-100.0); Mean Platelet Volume 9.7; Monocytes # (A) 0.3 k/uL (0-1.0); Monocytes % (A) 4 %; Neutrophils % (A) 65 %; Platelet Count 173 k/uL (150-450); RBC 5.65 m/uL (3.80-5.40); RDW 14.3 % (11.5-15.5); WBC 6.1 k/uL (3.8-10.6)
--- NOTE | 2022-07-09 12:53 | XR ---
EXAMINATION TYPE: XR chest 2V DATE OF EXAM: 07/09/2022 12:50 PM COMPARISON: Chest radiographs from 09/28/2014 TECHNIQUE: XR chest 2V Frontal and lateral views of the chest. CLINICAL INDICATION:Female, 56 years old with history of Chest Pain; FINDINGS: Lungs/Pleura: There is no evidence of pleural effusion, focal consolidation, or pneumothorax. Pulmonary vascularity: Unremarkable. Heart/mediastinum: Cardiomediastinal silhouette is unremarkable. Musculoskeletal: No acute osseous pathology. IMPRESSION: No acute cardiopulmonary disease/process.
[2022-07-09 12:58] LABS: ALT 21 U/L (4-34); AST 19 U/L (14-36); African American GFR (CKD) >90 (>60 ml/min/1.73 sqM); Albumin 4.2 g/dL (3.5-5.0); Alkaline Phosphatase 95 U/L (38-126); Anion Gap 11 mmol/L; Blood Urea Nitrogen 9 mg/dL (7-17); Calcium 9.1 mg/dL (8.4-10.2); Carbon Dioxide 25 mmol/L (22-30); Chloride 102 mmol/L (98-107); Glucose 126 mg/dL (74-99); Non-African American GFR(CKD) >90 (>60 ml/min/1.73 sqM); Potassium 3.8 mmol/L (3.5-5.1); Sodium 138 mmol/L (137-145); Total Bilirubin 0.5 mg/dL (0.2-1.3); Total Protein 7.4 g/dL (6.3-8.2)
[2022-07-09 13:21] LABS: Prothrombin Time 10.3 sec (9.0-12.0)
[2022-07-09] MEDS ORDERED: BENZONATATE 100 MG CAP PO STA (14:26)
[2022-07-09] MEDS ORDERED: NITROGLYCERIN SL TABS 0.4 MG TAB SUBLINGUAL PRN (14:29)
[2022-07-09] MEDS ORDERED: hydrALAZINE HCL 20 MG/ML 1 ML VIAL IVP STA (15:21)
[2022-07-09] MEDS: NITROGLYCERIN OINT 1 INCH/GM PACKET TOPICAL SCH (17:08)
[2022-07-09] MEDS ORDERED: SODIUM CHLORIDE 0.9% 500 ML 500 ML IV ONE (17:13)
[2022-07-09 18:09] LABS: Glucose,Whole Blood 107 mg/dL (70-110)
[2022-07-09] MEDS ORDERED: DEXTROSE 50% SYRINGE 50 ML IVP PRN ×2 (19:10)
[2022-07-09 19:56] LABS: Glucose,Whole Blood 167 mg/dL (70-110)
[2022-07-09] MEDS: guaiFENesin SYRUP 100MG/5ML 200 MG/10 ML CUP PO PRN (20:43)
[2022-07-09] MEDS: INSULIN ASPART (NovoLOG) 100 UNIT/ML VIAL SQ SCH (20:43)
[2022-07-09] MEDS ORDERED: MAGNESIUM OXIDE 400 MG TAB PO SCH (21:00)
[2022-07-09] MEDS: IPRATROPIUM-ALBUTEROL 3 ML NEB INHALATION SCH (21:02)
[2022-07-10] MEDS: NITROGLYCERIN OINT 1 INCH/GM PACKET TOPICAL SCH ×3 (00:15→12:14)
[2022-07-10] MEDS ORDERED: ACETAMINOPHEN TAB 325 MG TAB PO PRN (06:27)
[2022-07-10] MEDS ORDERED: ONDANSETRON 4 MG/2 ML VIAL IVP PRN (06:27)
[2022-07-10] MEDS: INSULIN ASPART (NovoLOG) 100 UNIT/ML VIAL SQ SCH ×2 (06:29→12:50)
[2022-07-10 06:30] LABS: Glucose,Whole Blood 142 mg/dL (70-110)
[2022-07-10] MEDS ORDERED: INSULIN DETEMIR (LEVEMIR) 100 UNIT/ML SYR SQ SCH ×2 (07:00)
[2022-07-10] MEDS: IPRATROPIUM-ALBUTEROL 3 ML NEB INHALATION SCH ×3 (08:47→14:48)
[2022-07-10] MEDS ORDERED: ASPIRIN 325 MG TAB PO SCH (09:00)
[2022-07-10] MEDS ORDERED: lisinopriL 10 MG TAB PO SCH (09:00)
--- NOTE | 2022-07-10 10:52 | P.CRDCN ---
History of Present Illness Consult date: 07/10/22 Consult reason: chest pain Chief complaint: chest pain and cough History of present illness: History of present illness: Patient is a pleasant 56-year-old female with significant past medical history of hypertension, hyperlipidemia, and diabetes who presents with cough and chest pain. She reports she has not seen a billing collections specialist in approximately 8 or 9 years. She does have significant family history of stroke and grandmother passing away of an MO age 51. Patient does not smoke. She reports that she has had a cough for the past 3 weeks she has had 2 rounds of a z-pack and also steroids with no improvement. She was diagnosed with Sunflower a couple weeks ago. She does report having chest pain, this has been worse over the past 3-4 days and is exacerbated by coughing. She does have mild shortness of breath. She saw her PCP yesterday and was told she had an abnormal EKG and was referred to the emergency department. She states that her cough is nonproductive. She is feeling better this morning and has no chest pain currently. She denies any recent cardiac workup. Labs reviewed: Troponin negative 3, d-dimer negative, WBC 6.1, hemoglobin 14.9, platelets 173, creatinine 0.59. EKG shows sinus rhythm with nonspecific T-wave abnormalities. Chest x-ray shows no acute findings. She reports she has been on lisinopril since about April this year. REVIEW OF SYSTEMS: No fever or chills. No diaphoresis. Patient denies headache, dizziness, blurred vision, double vision. Patient denies any stomach discomfort. No nausea, vomiting. No hematochezia. No hematemesis. Denies any black stools or blood in his stools. Denies dysuria or hematuria. No muscle weakness or numbness. Reports non- productive cough, shortness of breath, intermittent chest pain. PHYSICAL EXAMINATION: This is a 56-year-old female in no apparent distress at the time of my examination. HEENT: Head is atraumatic, normocephalic. Mucous membranes of the mouth are moist. Neck is supple. There is no jugular venous distention. No carotid bruit is heard. CHEST EXAMINATION: Lungs are clear to auscultation. No chest wall tenderness is noted on palpation or with deep breathing. HEART EXAMINATION: Heart regular rate and rhythm. S1, S2 heard. No murmurs, gallops or rub. ABDOMEN: Soft, nontender. Bowel sounds are heard. EXTREMITIES: 2+ peripheral pulses with no evidence of peripheral edema and no calf tenderness noted. NEUROLOGIC EXAMINATION: Patient is awake, alert and oriented x3. IMPRESSION AND PLAN: Chest pain Abnormal EKG Hypertension Hyperlipidemia Diabetes type 2 Dyspnea Cough, nonproductive PLAN: We will check echocardiogram to evaluate heart function and structure. We'll also check a stress echo to rule out inducible ischemia. Given nonproductive cough will change lisinopril to losartan to see if cough improves. If echo and stress tests are unremarkable okay to discharge home from cardiology standpoint with follow-up in 1 week. I am dictating on behalf of Dr. Mando Rodriguez's history/physical and assessment/plan. Past Medical History Past Medical History: Diabetes Mellitus, Hyperlipidemia History of Any Multi-Drug Resistant Organisms: None Reported Past Surgical History: Section, Hysterectomy Past Anesthesia/Blood Transfusion Reactions: No Reported Reaction Past Psychological History: Anxiety Smoking Status: Never smoker Past Alcohol Use History: None Reported Past Drug Use History: None Reported Medications and Allergies Home Medications Medication Instructions Recorded Confirmed Type Insulin Degludec [Tresiba 32 units SQ DAILY 12/25/17 07/09/22 History Flextouch U-100] Albuterol Sulfate [Albuterol 2 puff INHALATION RT-QID PRN 07/09/22 07/09/22 History Sulfate Hfa] Cyclobenzaprine [Flexeril] 10 mg PO DAILY 07/09/22 07/09/22 History Ergocalciferol [Vitamin D2 (1250 1,250 mcg PO MO 07/09/22 07/09/22 History Mcg = 15211 Iu)] Magnesium Oxide [Mag-Ox] 400 mg PO HS 07/09/22 07/09/22 History Rosuvastatin [Crestor] 20 mg PO DAILY 07/09/22 07/09/22 History carvediloL [Coreg] 6.25 mg PO Q48H 07/09/22 07/09/22 History lisinopriL [Prinivil] 10 mg PO DAILY 07/09/22 07/09/22 History Allergies Allergy/AdvReac Type Severity Reaction Status Date / Time No Known Allergies Allergy Verified 07/09/22 15:14 Physical Exam Vitals: Vital Signs Temp Pulse Pulse Resp BP BP BP 07/10/22 08:55 103 H 07/10/22 08:48 102 H 07/10/22 07:10 99.7 F H 88 16 153/89 07/10/22 02:53 98.8 F 94 18 145/83 07/09/22 21:58 140/84 07/09/22 21:09 104 H 07/09/22 21:03 100 07/09/22 18:40 99.4 F 101 H 17 173/94 07/09/22 17:10 98.8 F 98 17 137/86 07/09/22 16:16 82 19 156/97 07/09/22 15:52 96 19 173/102 07/09/22 15:08 98.3 F 91 17 165/111 07/09/22 13:36 99.0 F 89 18 164/106 07/09/22 13:24 89 07/09/22 13:15 73 07/09/22 12:36 98.6 F 93 19 187/117 07/09/22 12:15 20 07/09/22 11:56 104 F H 101 H 18 175/108 Pulse Ox 07/10/22 08:55 07/10/22 08:48 07/10/22 07:10 96 07/10/22 02:53 93 L 07/09/22 21:58 07/09/22 21:09 07/09/22 21:03 07/09/22 18:40 93 L 07/09/22 17:10 96 07/09/22 16:16 100 07/09/22 15:52 100 07/09/22 15:08 95 07/09/22 13:36 93 L 07/09/22 13:24 07/09/22 13:15 07/09/22 12:36 95 07/09/22 12:15 07/09/22 11:56 97 Intake and Output 07/09/22 07/10/22 07/10/22 22:59 06:59 14:59 Intake Total 118 Balance 118 Intake: Oral 118 Other: Voiding Method Toilet # Voids 1 2 Weight 91.626 kg Results 07/09/22 12:38 07/09/22 12:38 Cardiac Enzymes 07/09/22 07/09/22 07/09/22 Range/Units 12:38 12:38 15:05 AST 19 (14-36) U/L Troponin I <0.012 <0.012 (0.000-0.034) ng/mL 07/09/22 Range/Units 17:22 AST (14-36) U/L Troponin I <0.012 (0.000-0.034) ng/mL Coagulation 07/09/22 Range/Units 12:38 PT 10.3 (9.0-12.0) sec APTT 24.0 (22.0-30.0) sec CBC 07/09/22 Range/Units 12:38 WBC 6.1 (3.8-10.6) k/uL RBC 5.65 H (3.80-5.40) m/uL Hgb 14.9 (11.4-16.0) gm/dL Hct 46.1 H (34.0-46.0) % Plt Count 173 (150-450) k/uL Comprehensive Metabolic Panel 07/09/22 Range/Units 12:38 Sodium 138 (137-145) mmol/L Potassium 3.8 (3.5-5.1) mmol/L Chloride 102 (98-107) mmol/L Carbon Dioxide 25 (22-30) mmol/L BUN 9 (7-17) mg/dL Creatinine 0.59 (0.52-1.04) mg/dL Glucose 126 H (74-99) mg/dL Calcium 9.1 (8.4-10.2) mg/dL AST 19 (14-36) U/L ALT 21 (4-34) U/L Alkaline Phosphatase 95 (38-126) U/L Total Protein 7.4 (6.3-8.2) g/dL Albumin 4.2 (3.5-5.0) g/dL Current Medications Generic Name Dose Route Start Last Admin Trade Name Freq PRN Reason Stop Dose Admin Acetaminophen 650 mg 07/10/22 06:27 07/10/22 06:35 Acetaminophen Tab 325 Mg Tab PO 650 mg Q4HR PRN Administration Fever and/ or Pain Albuterol/Ipratropium 3 ml 07/09/22 20:00 07/10/22 08:47 Ipratropium-Albuterol 3 Ml Neb INHALATION 3 ml RT-QID JUAN J Administration Aspirin 325 mg 07/10/22 09:00 Aspirin 325 Mg Tab PO DAILY JUAN J Dextrose/Water 25 ml 07/09/22 19:10 Dextrose 50% Syringe 50 Ml IVP PER PROTOCOL PRN Hypoglycemia Protocol Dextrose/Water 50 ml 07/09/22 19:10 Dextrose 50% Syringe 50 Ml IVP PER PROTOCOL PRN Hypoglycemia Protocol Guaifenesin 200 mg 07/09/22 18:48 07/09/22 20:43 Guaifenesin Syrup 100mg/5ml 200 Mg/10 Ml Cup PO 200 mg Q6HR PRN Administration Cough Insulin Aspart 0 unit 07/09/22 21:00 07/10/22 06:29 Insulin Aspart (Novolog) 100 Unit/Ml Vial SQ Not Given [facility] Protocol Insulin Detemir 12 unit 07/10/22 07:00 Insulin Detemir (Levemir) 100 Unit/Ml Syr SQ DAILY@0700 JUAN J Lisinopril 10 mg 07/10/22 09:00 Lisinopril 10 Mg Tab PO DAILY JUAN J Magnesium Oxide 400 mg 07/09/22 21:00 07/09/22 20:43 Magnesium Oxide 400 Mg Tab PO 400 mg HS JUAN J Administration Nitroglycerin 0.4 mg 07/09/22 14:29 Nitroglycerin Sl Tabs 0.4 Mg Tab SUBLINGUAL Q5M PRN Chest Pain Nitroglycerin 1 inch 07/09/22 18:00 07/10/22 06:30 Nitroglycerin Oint 1 Inch/Gm Packet TOPICAL 1 inch Q6HR JUAN J Administration Ondansetron HCl 4 mg 07/10/22 06:27 Ondansetron 4 Mg/2 Ml Vial IVP Q8HR PRN Nausea And Vomiting Intake and Output 07/09/22 07/10/22 07/10/22 22:59 06:59 14:59 Intake Total 118 Balance 118 Intake: Oral 118 Other: Voiding Method Toilet # Voids 1 2 Weight 91.626 kg 07/09/22 12:38 07/09/22 12:38
[2022-07-10] MEDS ORDERED: LOSARTAN 25 MG TAB PO SCH (11:00)
--- NOTE | 2022-07-10 11:49 | CA ---
Transthoracic Echo Report Name: Nick Don Age: 56 Gender: F : 1965 Exam Date: 07/10/2022 09:13 Exam Location: [facility] Ht (in): 66 Wt (lb): 202 Ordering Physician: Gema Centeno Attending/Referring Phys: Jewel Stringer Basil Lewis RDCS Procedure CPT: Indications: chest pain, abnormal ekg Cardiac Hx: HTN; CP; SOB; DM; High Chol Technical Quality: Fair Contrast 1: Total Dose (mL): Contrast 2: Total Dose (mL): MEASUREMENTS (Male / Female) Normal Values 2D ECHO LV Diastolic Diameter PLAX 3.2 cm 4.2 - 5.9 / 3.9 - 5.3 cm LV Systolic Diameter PLAX 1.9 cm LV Fractional Shortening PLAX 40.4 % IVS Diastolic Thickness 1.5 cm 0.6 - 1.0 / 0.6 - 0.9 cm IVS Systolic Thickness 2.2 cm LVPW Diastolic Thickness 1.5 cm 0.6 - 1.0 / 0.6 - 0.9 cm LVPW Systolic Thickness 1.8 cm LV Relative Wall Thickness 0.9 RV Internal Dim ED PLAX 3.2 cm LVOT Diameter 1.7 cm LA Systolic Diameter LX 2.4 cm 3.0 - 4.0 / 2.7 - 3.8 cm LV Diastolic Volume MOD BP 64.4 cm??? 67 - 155 / 56 - 104 cm??? LV Systolic Volume MOD BP 22.3 cm??? 22 - 58 / 19 - 49 cm??? LV Ejection Fraction MOD BP 65.4 % >= 55 % LV Stroke Volume MOD BP 42.1 cm??? LV Diastolic Volume MOD 4C 66.5 cm??? LV Systolic Volume MOD 4C 21.1 cm??? LV Ejection Fraction MOD 4C 68.3 % LV Stroke Volume MOD 4C 45.4 cm??? LV Diastolic Length 4C 7.8 cm LV Systolic Length 4C 6.0 cm LV Diastolic Volume MOD 2C 61.9 cm??? LV Systolic Volume MOD 2C 23.3 cm??? LV Ejection Fraction MOD 2C 62.4 % LV Stroke Volume MOD 2C 38.6 cm??? LV Diastolic Length 2C 7.9 cm LV Systolic Length 2C 6.0 cm Ascending Aorta Diameter 2.3 cm M-MODE Aortic Root Diameter MM 2.8 cm LA Systolic Diameter MM 3.1 cm LA Ao Ratio MM 1.1 AV Cusp Separation MM 1.7 cm DOPPLER AV Peak Velocity 181.7 cm/s AV Peak Gradient 13.2 mmHg LVOT Peak Velocity 177.5 cm/s LVOT Peak Gradient 12.6 mmHg AV Area Cont Eq pk 2.3 cm??? MV Peak Velocity 114.5 cm/s MV Peak Gradient 5.2 mmHg MV Mean Velocity 69.7 cm/s MV Mean Gradient 2.1 mmHg MV Velocity Time Integral 25.7 cm MR Peak Velocity 329.8 cm/s MR Peak Gradient 43.5 mmHg Mitral E Point Velocity 39.8 cm/s Mitral A Point Velocity 100.8 cm/s Mitral E to A Ratio 0.4 MV Deceleration Time 185.3 ms MV E' Velocity 2.8 cm/s Mitral E to MV E' Ratio 14.2 TR Peak Velocity 128.4 cm/s TR Peak Gradient 6.6 mmHg Right Ventricular Systolic Press 16.6 mmHg PV Peak Velocity 131.0 cm/s PV Peak Gradient 6.9 mmHg FINDINGS Left Ventricle Left ventricular ejection fraction is estimated at 55-60 %. Moderate concentric left ventricular hypertrophy. Grade 1 diastolic dysfunction. Normal basal systolic function. Right Ventricle Normal right ventricular size and function. Right Atrium Normal right atrial size. Left Atrium Normal left atrial size. Mitral Valve Mitral valve thickened. No mitral stenosis. [id number] mitral regurgitation. Aortic Valve Trileaflet aortic valve. No aortic regurgitation. No aortic stenosis. Tricuspid Valve Mild tricuspid regurgitation. Pulmonic Valve Structurally normal pulmonic valve. Pericardium Normal pericardium. No pericardial effusion. Aorta Normal size aortic root and proximal ascending aorta. CONCLUSIONS Left ventricular ejection fraction 55-60% Moderate increased left ventricular wall thickness Mild to moderate mitral regurgitation Mild tricuspid regurgitation No pericardial effusion Previewed by: Dr. Mando Rodriguez DO (Electronically Signed) Final Date: 10 Jul 2022 11:48
[2022-07-10 12:20] LABS: Chol/HDL Ratio 3.87 Ratio; LDL Cholesterol,Calculated 116.2 mg/dL (0.0-131.0); VLDL Calculation 15.82 mg/dL (5.00-40.00)
[2022-07-10 12:45] LABS: Glucose,Whole Blood 233 mg/dL (70-110)
[2022-07-10] MEDS ORDERED: PANTOPRAZOLE 40 MG/10 ML VIAL IVP SCH (13:15)
--- NOTE | 2022-07-10 13:17 | CA ---
Stress Echo Report Nick Don Age: 56 Gender: F : 1965 Exam Date: 07/10/2022 11:14 Exam Location: [facility] Ht (in): 66 Wt (lb): 202 Ordering Physician: Gema Centeno Referring Physician: MADONNA,, Sales And Service Change Leader: Mary Ramírez RDCS Technologist Procedure CPT: Indication: chest pain, abnormal ekg ICD-9 Codes: Rhythm: Patient History: Atypical angina Cardiac Medications: Medications in past 24 hours: Contrast: Stress Results Protocol: Yared Total dose(mL): Exercise Duration (min:sec): 6:[address] Depression (mm): Angina Score: Elizabeth Score: METS: 7.9 Resting HR: 99 Resting BP: 152 / 85 Peak HR: 146 Peak BP: 231 / 100 Max Predicted HR: 163 90 % Max Predicted HR Target HR: 139 Double Product: [id number] Stress Summary: The patient's target heart rate was achieved BP Response: Abnormal increase in BP during/after stress Reason for Termination: Reached target heart rate or work-load Cardiac Symptoms: Test terminated after reaching target heart rate (85% max predicted) ECG Analysis Resting ECG: Stress ECG: Arrhythmia: Echo Analysis Resting Echo: Peak Echo Analysis: MEASUREMENTS (Male/Female) Normal Values CONCLUSIONS Patient underwent exercise stress echo with a Yared protocol treadmill stress test. Patient exercised into Stage 2 for a total of 6 minutes and 39 seconds reaching a total of 7.9 METS. Patient's maximum heart rate was 146 which represented 90 % age- predicted maximum heart rate. Stress EKG portion: At baseline patient's EKG showed normal sinus rhythm, normal axis, minimal 0.[address] depressions in the inferolateral leads. At peak exercise, EKG showed no significant change from baseline. Stress echo portion: 2-D echocardiogram was performed in the parasternal long, personal short, apical 2 and apical four-chamber views at rest, peak exercise and in recovery. At baseline, echocardiogram showed left ventricular ejection fraction 55% without wall motion abnormalities. With peak exercise, echocardiogram shows improvement in left ventricular ejection fraction, increase contractility, decrease in left ventricular end systolic dimension without wall motion abnormalities consistent with a normal response to exercise. Conclusions: 1. Nonspecific stress EKG portion secondary baseline EKG abnormalities. 2. Normal echo response to exercise without evidence of inducible ischemia. 3. Fair exercise capacity. Dr. Mando Rodriguez DO (Electronically Signed) Final Date: 10 Jul 2022 13:16
--- NOTE | 2022-07-10 13:53 | P.HPIM ---
History of Present Illness H&P Date: 07/10/22 Chief Complaint: Chest pain, cough, congestion This is a pleasant 56-year-old with past medical history significant for diabetes mellitus, hypertension, hyperlipidemia, anxiety, obesity, family history of CAD-grandmother from an NH at age 51, instructed to proceed to the ER secondary to abnormal EKG, with complaints of intermittent chest pain, in addition to nonproductive cough, congestion. Reports her cough has been present for nearly 2 weeks ,diagnosed with mononucleosis, completed steroids and two Z-packs. Symptoms progressed over the last 2-3 days accom panied by mild shortness of breath. Reports approximately 8 years ago she had an negative stress test. Has been on lisinopril since April 2022. Denies fever, chills, sweats, positive mild nausea. Denies emesis, diarrhea or abdominal pain. Prior sore throat which has resolved. Troponins negative 3, mild tachycardia, EKG reported sinus rhythm with nonspecific T-wave abnormalities. Chest x-ray reported none acute. Afebrile, normal WBC, hemoglobin 14.9, platelets 173, d-dimer 0.37, sodium 138, potassium 3.8, bicarb 25, BUN 9, creatinine 0.59, magnesium 2. A1c 7.7, glucose 160s to low 100s.Echo pending. This morning denies chest pain, palpitations or shortness of breath. Denies lightheadedness dizziness or focal deficits. Review of Systems ROS Statement: Those systems with pertinent positive or pertinent negative responses have been documented in the HPI. ROS Other: All systems not noted in ROS Statement are negative. Past Medical History Past Medical History: Diabetes Mellitus, Hyperlipidemia History of Any Multi-Drug Resistant Organisms: None Reported Past Surgical History: Section, Hysterectomy Past Anesthesia/Blood Transfusion Reactions: No Reported Reaction Past Psychological History: Anxiety Smoking Status: Never smoker Past Alcohol Use History: None Reported Past Drug Use History: None Reported Medications and Allergies Home Medications Medication Instructions Recorded Confirmed Type Insulin Degludec [Tresiba 32 units SQ DAILY 12/25/17 07/09/22 History Flextouch U-100] Albuterol Sulfate [Albuterol 2 puff INHALATION RT-QID PRN 07/09/22 07/09/22 History Sulfate Hfa] Cyclobenzaprine [Flexeril] 10 mg PO DAILY 07/09/22 07/09/22 History Ergocalciferol [Vitamin D2 (1250 1,250 mcg PO MO 07/09/22 07/09/22 History Mcg = 83838 Iu)] Magnesium Oxide [Mag-Ox] 400 mg PO HS 07/09/22 07/09/22 History Rosuvastatin [Crestor] 20 mg PO DAILY 07/09/22 07/09/22 History carvediloL [Coreg] 6.25 mg PO Q48H 07/09/22 07/09/22 History lisinopriL [Prinivil] 10 mg PO DAILY 07/09/22 07/09/22 History Allergies Allergy/AdvReac Type Severity Reaction Status Date / Time No Known Allergies Allergy Verified 07/09/22 15:14 Physical Exam Vitals: Vital Signs Temp Pulse Pulse Resp BP BP BP 07/10/22 08:55 103 H 07/10/22 08:48 102 H 07/10/22 07:10 99.7 F H 88 16 153/89 07/10/22 02:53 98.8 F 94 18 145/83 07/09/22 21:58 140/84 07/09/22 21:09 104 H 07/09/22 21:03 100 07/09/22 18:40 99.4 F 101 H 17 173/94 07/09/22 17:10 98.8 F 98 17 137/86 07/09/22 16:16 82 19 156/97 07/09/22 15:52 96 19 173/102 07/09/22 15:08 98.3 F 91 17 165/111 07/09/22 13:36 99.0 F 89 18 164/106 07/09/22 13:24 89 07/09/22 13:15 73 Pulse Ox 07/10/22 08:55 07/10/22 08:48 07/10/22 07:10 96 07/10/22 02:53 93 L 07/09/22 21:58 07/09/22 21:09 07/09/22 21:03 07/09/22 18:40 93 L 07/09/22 17:10 96 07/09/22 16:16 100 07/09/22 15:52 100 07/09/22 15:08 95 07/09/22 13:36 93 L 07/09/22 13:24 07/09/22 13:15 Intake and Output 07/09/22 07/10/22 07/10/22 22:59 06:59 14:59 Intake Total 118 Balance 118 Intake: Oral 118 Other: Voiding Method Toilet # Voids 1 2 Weight 91.626 kg PHYSICAL EXAM: VITAL SIGNS: [As above] GENERAL: Alert and oriented 3,Sitting up in bed, no acute distress HEENT: Conjunctivae normal. eyes normal. NECK: supple, No JVD. No thyroid enlargement. No LNs CARDIOVASCULAR: S1, S2 regular..No murmur RESPIRATION: Breath sounds diminished in the bases. Mild rhonchi, no crackles. ABDOMEN: Soft, nontender . No guarding. no masses palpable. No ascites, No hepatosplenomegaly.Bowel sounds heard. LEGS: No edema. no swelling, no calf tenderness, positive DP pulses NERVOUS SYSTEM: Cranial N 2-12 grossly normal. No focal deficits. Strength and sensation grossly intact. Skin: Warm and dry, no rash Results CBC & Chem 7: 07/09/22 12:38 07/09/22 12:38 Labs: Abnormal Lab Results - Last 24 Hours (Table) 07/09/22 07/10/22 07/10/22 Range/Units 19:54 06:09 06:28 POC Glucose (mg/dL) 167 H 142 H (70-110) mg/dL Hemoglobin A1c 7.7 H (0.0-6.0) % 07/10/22 Range/Units 12:45 POC Glucose (mg/dL) 233 H (70-110) mg/dL Hemoglobin A1c (0.0-6.0) % Assessment and Plan Assessment: Chest pain, abnormal EKG, dyspnea, cough, congestion- mononucleosis diagnosed couple weeks ago, failed outpatient treatment. Strong family history of CAD. Diabetes mellitus type 2, hemoglobin A1c 7.7, further diabetic teaching outpatient in clinic with PCP Hypertension Hyperlipidemia Plan: Continue on current medication regime, monitoring, symptomatic treatment. Evaluated by cardiology, echo/ stress echo pending. Kiko discontinued, arb initiated. The impression and plan of care has been dictated as directed. : I performed a history and examination of this patient, discussed the same with the dictator. I agree with the dictator's note ,documented as a scribe. Any additional findings or plans will be noted.
[2022-07-10 14:46] VITALS: BP 143/86; RESP 14; TEMP 98
[2022-07-10 14:57] VITALS: PULSE 101
[2022-07-10] MEDS ORDERED: carvediloL 6.25 MG TAB PO SCH (16:00)
[2022-07-10] MEDS: guaiFENesin SYRUP 100MG/5ML 200 MG/10 ML CUP PO PRN (16:45)
[2022-07-11] MEDS ORDERED: PANTOPRAZOLE 40 MG TABLET PO SCH (07:30)
== END 2022-07-10 17:30 | disposition home or self-care (01) ==
LOC: EC 11:54 → 6NMEDSUR 14:30
PROVIDERS: ADMIT Family Medicine; ATTEND Family Medicine
DX: R07.89 Other chest pain (principal); R94.31 Abnormal electrocardiogram [ECG] [EKG]; E11.9 Type 2 diabetes mellitus without complications; R00.0 Tachycardia, unspecified; R06.00 Dyspnea, unspecified; I08.1 Rheumatic disorders of both mitral and tricuspid valves; E78.00 Pure hypercholesterolemia, unspecified; I10 Essential (primary) hypertension; B27.90 Infectious mononucleosis, unspecified without complication; R11.0 Nausea; F41.9 Anxiety disorder, unspecified; E66.9 Obesity, unspecified; Z68.32 Body mass index [BMI] 32.0-32.9, adult; Z20.822 Contact with and (suspected) exposure to COVID-19; Z79.4 Long term (current) use of insulin; Z79.899 Other long term (current) drug therapy; Z90.710 Acquired absence of both cervix and uterus; Z98.891 History of uterine scar from previous surgery; Z82.49 Family history of ischemic heart disease and other diseases of the circulatory system; Z82.3 Family history of stroke
CPT/HCPCS: 96375; 96374; 99285; 36415; 94640 ×3; 93005; 93306; 93351; 85379; 80061; 80053; 83735; 84484; 85025; 85610; 85730; 83036; 87636; 71046; G0378 ×2; J0360; C9113

== ENCOUNTER → 2022-08-26 | Outpatient (CLI) | payer BC ==
--- NOTE | 2022-08-27 12:51 | CT ---
EXAMINATION TYPE: CT neck chest without con CT DLP: 1233.20 mGycm, Automated exposure control for dose reduction was used. DATE OF EXAM: 08/26/2022 4:46 PM COMPARISON: 09/16/2014. CLINICAL INDICATION:Female, 56 years old with history of R05.3; R49.0;, throat and chest pain TECHNIQUE: Standard enhanced CT of the neck and chest. Axial sections with coronal and sagittal refo rmats were obtained. Contrast used: mL of , none Oral contrast used: none. FINDINGS: Brain: Visualized portions are grossly unremarkable. Orbits: Unremarkable Sinuses: Grossly unremarkable. Spaces of the neck: Clear and symmetric. Musculoskeletal: No acute osseous pathology. Lymph nodes: Multiple nonenlarged lymph nodes are seen along both anterior chains of the neck. Vascular structures: No significant atherosclerosis visualized. Atherosclerosis of intracranial vascu lature. Thoracic Inlet/airway: Airway is patent. The lung apices are clear. Soft tissues/Thyroid: Thyroid and remainder of the soft tissues are unremarkable. Other: none. LUNGS/ PLEURA: No focal consolidation, pneumothorax or pleural effusion. AIRWAY: Patent and unremarkable. HEART: The heart is mildly enlarged for size. MEDIASTINUM: No gross evidence of adenopathy. VASCULATURE: Atherosclerotic calcifications are present throughout the aorta and its branches. MUSCULOSKELETAL: Mild disc degeneration changes are present throughout the thoracolumbar spine. SOFT TISSUES/LYMPH NODES: Unremarkable. LOWER NECK: No significant findings. UPPER ABDOMEN: Scattered colonic diverticula are noted. IMPRESSION 1. No evidence for acute abnormality within the neck. No lymphadenopathy identified. Limited evaluat ion of the pharynx without IV contrast. 2. No evidence for acute process within the chest.
== END | disposition home or self-care (01) ==
LOC: RADCTMAIN 16:28
PROVIDERS: ATTEND Family Medicine
DX: K21.9 Gastro-esophageal reflux disease without esophagitis (principal); R05.3 Chronic cough; R49.0 Dysphonia
CPT/HCPCS: 70490; 71250

== ENCOUNTER → 2023-07-17 | Outpatient (CLI) | payer BC ==
--- NOTE | 2023-07-17 07:35 | MM ---
Reason for Exam: Follow-up at short interval from prior study. Last mammogram was performed 1 year(s) and 1 month(s) ago. Patient History: Menarche at age 10. First Full-Term at age 24. Hysterectomy at age 39. Postmenopausal. Patient has history of breast feeding. Hormonal Contraceptives for 6 months. Risk Values: Jen 5 year model risk: 1.4%. NCI Lifetime model risk: 7.3%. Prior Study Comparison: 12/25/2017 Bilateral Screening Mammogram, [facility]. 12/02/2018 Bilateral Diagnostic Mammogram, [facility]. 03/27/2020 Bilateral Screening Mammogram, [facility]. 09/28/2020 Right Diagnostic Mammogram, [facility]. 06/14/2022 Bilateral MG 3D screening mammo w/cad, [facility]. Tissue Density: There are scattered areas of fibroglandular density. Findings: Analyzed By CAD. Scattered benign bilateral round and oil cyst calcifications on both sides. Areas of asymmetric density are unchanged, particularly in the subareolar/periareolar left breast. Note significant change from prior exams. Overall Assessment: Benign, BI-RAD 2 Management: Screening Mammogram of both breasts in 1 year. Results were given to the patient verbally at the time of exam. Patient should continue monthly self-breast exams. A clinical breast exam by your physician is recommended on an annual basis. This exam should not preclude additional follow-up of suspicious palpable abnormalities. Note on Jen scores and lifetime risk: 1. A Jen score greater than 3% is considered moderate risk. If this is the case, consider specialist referral to assess eligibility for a risk reducing agent. 2. If overall lifetime risk for the development of breast cancer is 20% or higher, the patient may qualify for future screening with alternating mammogram and breast MRI. Electronically signed and approved by: Rupali Carlson M.D. Radiologist
== END | disposition home or self-care (01) ==
LOC: RADMAMWWP 07:02
PROVIDERS: ATTEND Family Medicine
DX: R92.8 Other abnormal and inconclusive findings on diagnostic imaging of breast (principal); R92.323 Mammographic fibroglandular density, bilateral breasts; Z78.0 Asymptomatic menopausal state
CPT/HCPCS: 77062; 77066